=== PATIENT | female | born 1965 | race Caucasian/White ===

== ENCOUNTER 2018-11-14 10:05 | Observation (INO) | payer OTHER ==
[~2018-11-14] VITALS: Ht 167.6 cm; Wt 80.3 kg
[2018-11-14] MEDS: SODIUM CHLORIDE 0.9% 1000ML 1,000 ML IV SCH ×3 (02:30→19:31)
[2018-11-14] MEDS ORDERED: CEFTRIAXONE SOD 1 GM/NS 50 ML 50 ML IV ONE ×2 (11:06→11:30)
[2018-11-14] MEDS ORDERED: CLINDAMYCIN 600MG / 50ML 50 ML IV ONE ×2 (11:07→11:30)
[2018-11-14] MEDS ORDERED: ONDANSETRON HCL INJ 2MG/ML 2ML 2 MG/ML VIAL IV PRN (11:45)
--- NOTE | 2018-11-14 12:02 | NUR ---
[facility] CALLED FOR TRANSPORTATION. ETA AT 1300 PER DISPATCHER.
[2018-11-14] MEDS: CLINDAMYCIN 600MG / 50ML 50 ML IV SCH ×2 (12:52→17:51)
[2018-11-14 13:20] VITALS: BP 138/92
--- NOTE | 2018-11-14 13:20 | NUR ---
[facility]CD PT [facility] BY [facility] PT IS ALERT AND ORIENTED VITALS CHECKED PT RESTING ON BED ADMISSION ASSESSMENT DONE PT SAID SHE HAD INSECT BITE ON YESTURDAY AT WORKING PLACE REDNESS AND SWELLING ON THE LEFT MIDDLE FINGER SHE DENIED PAIN ADMISSION HISTORY AND VACCINATION HISTORY DONE ,IV PATENT BY SALINE FLUSH AND CONNECTED NS 125/MT INSTRUCTED PT REGARDING HOSPITAL POLICY AND ROUTINE BED LOW AND LOCKED CALL LIGHT IN REACH
[2018-11-14 13:46] VITALS: BP 138/92
[2018-11-14 13:54] VITALS: BP 138/92
--- NOTE | 2018-11-14 14:00 | NUR ---
PAGED DR FLYNN AND TALKED DR Gabriel FLYNN ,PT IS HERE [facility] HE SAID HE IS COMING TO SEE THE PT AND GOT THE ORDER TO ID CONSULT
[2018-11-14 16:00] VITALS: BP 123/85
[2018-11-14] MEDS ORDERED: ACETAMINOPHEN/CODEINE 300MG - 30MG TAB PO PRN (18:30)
[2018-11-14] MEDS: LEVOFLOXACIN 500MG/D5W 100ML 100 ML IV SCH (18:38)
[2018-11-14] MEDS ORDERED: CRESTOR10 MG PO (18:39)
--- NOTE | 2018-11-14 18:45 | NUR ---
PT RESTING ON BED BED SIDE REPORT GIVEN TO ONCOMING NURSE
--- NOTE | 2018-11-14 19:37 | Diagnostic Imaging Report ---
Radiographs of the left hand HISTORY: Pain COMPARISON: None available. FINDINGS: Bones: No acute displaced fracture. Chronic appearing deformity of the distal radius and ulnar styloid Osseous alignment is within normal limits. Joints: The joint spaces are well-maintained. Soft tissues: Soft tissue swelling IMPRESSION: Soft tissue swelling Signed by: Dr. Bong Eid M.D. on 11/14/2018 7:34 PM
[2018-11-14 20:14] VITALS: BP 116/85
[2018-11-14 20:20] VITALS: BP 116/85
[2018-11-14] MEDS: SIMVASTATIN 20 MG TAB PO SCH (20:20)
--- NOTE | 2018-11-14 20:20 | NUR ---
PATIENT IS AOX4, NO SIGNS OF RESPIRATORY DISTRESS NOTED. PATIENT DOES NOT VOICE ANY PAIN AT THIS TIME AND FAMILY MEMBERS ARE PRESENT AT BEDSIDE. IV PUMP IS RUNNING AT ORDERED RATE, BED IS IN LOWEST POSITION, CALL LIGHT WITHIN EASY REACH, WILL CONTINUE TO MONITOR.
[2018-11-14] MEDS ORDERED: SIMVASTATIN 40 MG TAB PO SCH (21:00)
[2018-11-15] VITALS (8 sets, daily range): BP systolic 89–133; BP diastolic 53–79
[2018-11-15] MEDS: CLINDAMYCIN 600MG / 50ML 50 ML IV SCH ×5 (00:35→23:30)
--- NOTE | 2018-11-15 01:13 | History and Physical ---
CHIEF COMPLAINT: Swelling, redness at the base of the left middle finger since yesterday, possible spider bite versus injury. 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 The patient found that some sting left middle finger yesterday, then started redness and blister popping up. The patient thinks she might have injury versus a spider bite. The patient has more pain and redness, so came to the ER right across the hospital and sent here for IV antibiotic. Mild fever. Local pain. The patient had a tetanus shot this year. No chest pain. No shortness of breath. No abdomen pain. No nausea. No vomiting. No diarrhea. No leg pain. No leg swelling. No backache. No burning urination. No seizures. No focal weakness. ALLERGIES: TO CYCLOBENZAPRINE, PENICILLIN, AND PROMETHAZINE. PAST SURGICAL HISTORY: None. PAST MEDICAL HISTORY: She has hyperlipidemia and gastroesophageal reflux disease. SOCIAL HISTORY: The patient lives with family. FAMILY HISTORY: Positive mother for hypertension and father, coronary artery disease. HABITS: Denies smoking. Denies alcohol use. Denies illicit drug use. MEDICATION: and omeprazole. REVIEW OF SYSTEMS: GENERAL: Denies fatigue and weakness. HEENT: No diplopia or blurred vision. CARDIOPULMONARY: No chest pain. No shortness of breath. No cough. ALIMENTARY: No nausea or vomiting. No diarrhea. GENITOURINARY: No dysuria. No hematuria. MUSCULOSKELETAL: Has a left hand pain at the base of the left middle finger. CENTRAL NERVOUS SYSTEM: Grossly nonfocal. No seizure. PHYSICAL EXAMINATION: GENERAL: This is a 53-year-old female, who is alert and oriented x3, in no gross distress. VITAL SIGNS: Temperature 97.9, pulse 84, respirations 16, and blood pressure 123/85. HEENT: Head is atraumatic and normocephalic. Pupils bilaterally equally reactive to light. Extraocular muscles intact. NECK: Supple. No JVD. No carotid bruits. LUNGS: Clear to auscultation and percussion bilaterally. No added sounds. HEART: S1, S2. Regular rate and rhythm. No S3, S4, or murmur. ABDOMEN: Soft, nontender. No guarding. No rigidity. EXTREMITIES: No edema. Peripheral pluses 1. Left hand, left middle finger base has some erythema, swelling, redness, and tenderness and a blister. LABORATORY DATA: White count is elevated. Chemistry normal as per the ER doctor. ASSESSMENT: 1. Cellulitis of left middle finger. 2. Possible spider bite versus injury. 3. History of gastroesophageal reflux disease. 4. Hyperlipidemia. PLAN: IV clindamycin 600 q.6 hours, Levaquin 500 IV daily, IV fluids normal saline at 125 mL/h, Tylenol No. 3 q.8 hours p.r.n. for pain. Continue omeprazole 40 daily. Lab CBC, CMP in the morning, x-ray, and Lab 10. Case discussed with the patient all condition, prognosis, and plan of care. MD ANDREE Sexton/DENNY /[id number]
[2018-11-15] MEDS: SODIUM CHLORIDE 0.9% 1000ML 1,000 ML IV SCH ×2 (02:30→08:52)
[2018-11-15 05:24] LABS: BASOPHILS % 0.4 % (0.0-1.0); EOSINOPHILS # (AUTO) 0.2 (0.0-0.4); EOSINOPHILS % 1.9 % (0.0-6.0); HEMATOCRIT 38.3 % (34.2-44.1); HEMOGLOBIN 12.5 g/dL (12.0-16.0); LYMPHOCYTES # (AUTO) 2.1 (1.0-3.2); LYMPHOCYTES % 26.4 % (18.0-39.1); MEAN CORPUSCULAR HGB CONC 32.6 g/dL (31-35); MEAN CORPUSCULAR VOLUME 91.8 fL (81-99); MONOCYTES # (AUTO) 0.7 (0.2-0.8); MONOCYTES % 8.6 % (4.4-11.3); NEUTROPHILS # (AUTO) 4.9 (2.1-6.9); NEUTROPHILS % 62.4 % (38.7-80.0); PLATELET COUNT 216 x10e3/uL (140-360); RED BLOOD COUNT 4.17 x10e6/uL (3.6-5.1); RED CELL DISTRIBUTION WIDTH 13.3 % (11.7-14.4)
[2018-11-15 05:36] LABS: ALBUMIN 3.1 g/dL (3.5-5.0); ANION GAP 12.9 mmol/L (8-16); CALCIUM 8.7 mg/dL (8.4-10.2); CREATININE, SERUM 1.15 mg/dL (0.57-1.11); POTASSIUM 3.9 mmol/L (3.5-5.1)
--- NOTE | 2018-11-15 07:00 | NUR ---
RCD PT AT BED PT IS ALERT AND ORIENTED RESTING ON BED NO SIGNS OF ANY DISTRESS NOTED IV PATENT BED LOW AND LOCKED CALL LIGHT IN REACH
[2018-11-15] MEDS: OMEPRAZOLE 20 MG CAP PO SCH (07:30)
[2018-11-15] MEDS: LACTOBACILLUS ACIDOPHILUS CAPSULE PO SCH ×2 (09:00→16:52)
[2018-11-15] MEDS: LEVOFLOXACIN 500MG/D5W 100ML 100 ML IV SCH (18:22)
--- NOTE | 2018-11-15 18:42 | NUR ---
PT RESTING ON BED BED SIDE REPORT GIVEN TO ONCOMING NURSE
--- NOTE | 2018-11-15 19:43 | Consultation ---
DATE OF CONSULTATION: REASON FOR CONSULTATION: Cellulitis of the hand after an injury at work. HISTORY OF PRESENT ILLNESS: This patient, who is a very pleasant 53-year-old white female, history of hypercholesterolemia, gastroesophageal reflux disease, no other medical issues, who was in usual state of health. She does work at the [employer]. Apparently, she was doing something with the desk and she is not so sure if something bit her or not, but soon after she left work, she noted that there was redness and swelling started at the proximal end of her left 3rd finger, then started to spread to her hand and her wrist and then all the way to her arm. There was no fever, no chills, but there was significant pain, so she came here. The patient was admitted, on IV antibiotic. I am asked to see her. Discussed the case with Dr. Hernandez yesterday. Currently, she is feeling better. PAST MEDICAL HISTORY: As above. PAST SURGICAL HISTORY: As above. ALLERGIES: PENICILLIN. SOCIAL HISTORY: There is no smoking, drug abuse, or alcohol abuse. FAMILY HISTORY: Otherwise noncontributory. REVIEW OF SYSTEMS: HEENT: Negative. PULMONARY: Negative. CARDIAC: Negative. : Negative. GI: Negative. SKIN: There is no rash. LABORATORY DATA: Labs showed white count 7.79 and hemoglobin 12. Sodium 141, potassium 3.9, and creatinine 1.15. MEDICATIONS: She is currently on clindamycin and Levaquin. PHYSICAL EXAMINATION: GENERAL: She is currently alert and oriented. Does not seem to be in acute distress. VITAL SIGNS: Stable. There is no fever since admission. HEENT: Normocephalic. Not icteric. NECK: Supple. No JVD. No lymphadenopathy. No thyromegaly. CHEST: Clear bilateral. HEART: S1 and S2. No S3, S4, or murmur. ABDOMEN: Soft. Bowel sounds present. No tenderness. No hepatosplenomegaly. EXTREMITIES: No edema. The hand has erythema. There is edema noted. Mainly around at proximal end of the 3rd finger, but there is some in the hand still. She is telling me it is a lot better today. IMPRESSION: Cellulitis due to injury, not so sure if it was an insect bite or some other cut. The plan to continue the current choice of antibiotics since she is doing better. We will reassess in the morning. Keep the hand elevated. Discussed with the patient at length. Thank you for asking me to see this patient. Discussed with medical team. MD TERESA Hernandez/DENNY /[id number]
[2018-11-15] MEDS: SIMVASTATIN 20 MG TAB PO SCH (20:15)
--- NOTE | 2018-11-15 20:15 | NUR ---
PATIENT IN STABLE CONDITION, NO SIGNS OF DISTRESS NOTED. PATIENT DOES NOT VOICE ANY PAIN AT THIS TIME AND PATIENT VOICES NO PAIN AT THIS TIME. IV PUMP IS RUNNING AT ORDERED RATE, BED IS IN LOWEST POSITION, CALL LIGHT WITHIN EASY REACH, WILL CONTINUE TO MONITOR.
[2018-11-16] VITALS (9 sets, daily range): BP systolic 94–123; BP diastolic 57–71
[2018-11-16] MEDS: SODIUM CHLORIDE 0.9% 1000ML 1,000 ML IV SCH (04:14)
[2018-11-16] MEDS: CLINDAMYCIN 600MG / 50ML 50 ML IV SCH ×3 (05:30→18:13)
[2018-11-16 05:51] LABS: ANION GAP 12.5 mmol/L (8-16); CALCIUM 8.7 mg/dL (8.4-10.2); CREATININE, SERUM 1.09 mg/dL (0.57-1.11); POTASSIUM 4.5 mmol/L (3.5-5.1)
--- NOTE | 2018-11-16 07:06 | NUR ---
REPORT GIVEN TO ONCOMING NURSE PATIENT RESTING IN BED.
[2018-11-16] MEDS: OMEPRAZOLE 20 MG CAP PO SCH (08:15)
[2018-11-16] MEDS: LACTOBACILLUS ACIDOPHILUS CAPSULE PO SCH ×2 (08:15→17:01)
--- NOTE | 2018-11-16 14:37 | NUR ---
Cm spoke to Dr. Aviles regarding antibiotics for pt. Informed him that pt is currently 2 day obs. He states from his standpoint pt can discharge home on oral antibiotic. Stated he will call and talk to Dr. Hernandez.
--- NOTE | 2018-11-16 17:37 | Progress Note ---
DATE: SUBJECTIVE: Ms. Velasquez is feeling slightly better. The finger is doing better, still some erythema noted in the lower third. REVIEW OF SYSTEMS: HEENT: Negative. PULMONARY: Negative. CARDIAC: Negative. : Negative otherwise. MEDICATIONS: She is on IV clindamycin and Levaquin. LABORATORY DATA: White count 7.79 and hemoglobin 12. Sodium 142 and potassium 4.5. PHYSICAL EXAMINATION: GENERAL: She is currently alert, oriented, does not seem to be in acute distress. VITAL SIGNS: Stable, currently afebrile. HEENT: She is not icteric. NECK: Supple. CHEST: Clear. HEART: S1 and S2. No murmur. ABDOMEN: Soft. Bowel sounds present. No tenderness. EXTREMITIES: The finger seems to be getting better. There is also some erythema and edema. IMPRESSION AND PLAN: Cellulitis of the finger after an injury at work, slowly better. There may be some very superficial abscess. We will keep on IV antibiotic for the time being. We will reassess in the morning. MD TERESA Hernandez/DENNY /[id number]
[2018-11-16] MEDS: LEVOFLOXACIN 500MG/D5W 100ML 100 ML IV SCH (17:48)
--- NOTE | 2018-11-16 18:50 | NUR ---
Bedside rounds completed with morning nurse. Pt alert and oriented to name. Lying in bed HOB 45 degrees. Denies pain at this time. Call light within reach. Will continue to monitor.
[2018-11-16] MEDS: SIMVASTATIN 20 MG TAB PO SCH (21:00)
[2018-11-17] VITALS (8 sets, daily range): BP systolic 103–118; BP diastolic 54–72
[2018-11-17] MEDS: SODIUM CHLORIDE 0.9% 1000ML 1,000 ML IV SCH (04:12)
[2018-11-17] MEDS: CLINDAMYCIN 600MG / 50ML 50 ML IV SCH ×4 (05:42→17:00)
[2018-11-17 05:51] LABS: BASOPHILS % 0.4 % (0.0-1.0); EOSINOPHILS # (AUTO) 0.2 (0.0-0.4); EOSINOPHILS % 2.6 % (0.0-6.0); HEMATOCRIT 40.6 % (34.2-44.1); LYMPHOCYTES # (AUTO) 3.3 (1.0-3.2); MEAN CORPUSCULAR VOLUME 93.5 fL (81-99); MONOCYTES # (AUTO) 0.6 (0.2-0.8); MONOCYTES % 7.1 % (4.4-11.3); NEUTROPHILS # (AUTO) 3.9 (2.1-6.9); NEUTROPHILS % 48.6 % (38.7-80.0); PLATELET COUNT 268 x10e3/uL (140-360); RED BLOOD COUNT 4.34 x10e6/uL (3.6-5.1); RED CELL DISTRIBUTION WIDTH 13.4 % (11.7-14.4)
[2018-11-17 06:17] LABS: ALBUMIN 3.1 g/dL (3.5-5.0); ALBUMIN/GLOBULIN RATIO 0.9 (0.8-2.0); CALCIUM 9.1 mg/dL (8.4-10.2); CREATININE, SERUM 1.06 mg/dL (0.57-1.11)
[2018-11-17] MEDS: OMEPRAZOLE 20 MG CAP PO SCH (09:00)
[2018-11-17] MEDS: LACTOBACILLUS ACIDOPHILUS CAPSULE PO SCH ×2 (09:00→16:59)
--- NOTE | 2018-11-17 13:23 | NUR ---
MESSAGE LEFT Bruno FLYNN INFORMING PT IS A 3DAY OBS AND DC OR ADMIT IF APPROPRIATE.
[2018-11-17] MEDS: LEVOFLOXACIN 500MG/D5W 100ML 100 ML IV SCH (17:44)
[2018-11-17] MEDS: MUPIROCIN 2% OINT 22 GM TUBE TOP SCH (17:44)
--- NOTE | 2018-11-17 19:59 | NUR ---
RECEIVED PT IN BED AOX3 .DENIES PAIN RESPIRATION ARE EVEN AND UNLABORED .CALL LIGHT WITH IN REACH .CONTINUE TO MONITOR
[2018-11-17] MEDS: SIMVASTATIN 20 MG TAB PO SCH (20:46)
[2018-11-18 03:25] VITALS: BP 95/51
[2018-11-18] MEDS: CLINDAMYCIN 600MG / 50ML 50 ML IV SCH ×2 (06:00)
--- NOTE | 2018-11-18 07:00 | NUR ---
received am report from nurse and morning rounds done. pt is alert resting in bed, no s/s of distress. call light within reach and instructed pt to call nurse for help
--- NOTE | 2018-11-18 07:27 | NUR ---
PT RESTED DURING THE NIGHT .NO ACUTE DISTRESS NOTED .CALL LIGHT WITH IN REACH .CONTINUE TO MONITOR .BEDSIDE REPORT GIVEN TO THE ONCOMING NURSE
[2018-11-18 08:13] VITALS: BP 102/73
[2018-11-18] MEDS: MUPIROCIN 2% OINT 22 GM TUBE TOP SCH (08:35)
[2018-11-18] MEDS: OMEPRAZOLE 20 MG CAP PO SCH (08:35)
[2018-11-18] MEDS: LACTOBACILLUS ACIDOPHILUS CAPSULE PO SCH (08:35)
[2018-11-18 10:10] VITALS: BP 102/73
[2018-11-18 11:40] VITALS: BP 125/78
== END 2018-11-18 14:15 | disposition home or self-care (01) ==
LOC: FSED 10:05 → ERHOLD 11:31 → MED/SURG2 13:20
PROVIDERS: ADMIT Internal Medicine; ATTEND Internal Medicine
DX: T63.301A Toxic effect of unspecified spider venom, accidental (unintentional), initial encounter (principal); L03.012 Cellulitis of left finger; E78.5 Hyperlipidemia, unspecified; K21.9 Gastro-esophageal reflux disease without esophagitis; X58.XXXA Exposure to other specified factors, initial encounter; Y93.89 Activity, other specified; Y92.488 Other paved roadways as the place of occurrence of the external cause; Y99.0 Civilian activity done for income or pay
CPT/HCPCS: 36415 ×3; 73130; 80048; 80053 ×3; 85025 ×3; 87040; 99283; G0378 ×5; J0696; J1956 ×4; J2405; J7030 ×4